=== PATIENT | male | born 1965 | race Caucasian/White ===

== ENCOUNTER 2016-10-14 07:31 | Emergency (ER) | payer BC ==
--- NOTE | 2016-10-14 08:05 | UC ---
Respiratory Complaint HPI - HPI Summary HPI Summary: 51 yo male with one week hx of progressive worsening URI symptoms Now with fever/chills, marked facial pressure and pain/post nasal drip and purulent nasal d/c sinus surgery in past - History of Current Complaint Chief Complaint: UCGeneralIllness Stated Complaint: SINUS COMPLAINT Time Seen by Provider: 10/14/16 07:53 Hx Obtained From: Patient Onset/Duration: Gradual Onset Timing: Constant Severity Initially: Mild Severity Currently: Moderate Pain Intensity: 4 Pain Scale Used: 0-10 Numeric Character: Cough: Nonproductive Associated Signs And Symptoms: Positive: Fever, Chills, Nasal Congestion, Hoarseness, Sinus Discomfort Related History: Similar Episode/Dx as: - acute sinusitis - Allergies/Home Medications Allergies/Adverse Reactions: Allergies Allergy/AdvReac Type Severity Reaction Status Date / Time Erythromycin Allergy Intermediate Eyes Verified 08/14/16 07:30 Itchy/Swollen/Red/Watery Lactose Intolerance (GI) Allergy Intermediate GI Upset Verified 08/14/16 07:30 Sulfa Antibiotics Allergy Intermediate Hives Verified 08/14/16 07:30 Tramadol Allergy Intermediate GI Upset Verified 08/14/16 07:30 Home Medications: Home Medications oxyCODONE/Acetamin 5/325 MG* [Percocet 5/325 TAB*] 1 tab PO Q6H PRN 10/14/16 [ History Confirmed 10/14/16] PMH/Surg Hx/FS Hx/Imm Hx Endocrine History Of: Denies: Diabetes, Thyroid Disease Cardiovascular History Of: Reports: Cardiac Disorders - a-fib Denies: Hypertension, Pacemaker/ICD Respiratory History Of: Reports: Bronchitis - HAD 1- 1.5 YEARS AGO NONE NOW Denies: COPD, Asthma GI/ History Of: Denies: Ulcer, Renal Disease Neurological History Of: Reports: Migraine - X 1 Psychological History Of: Reports: Anxiety - MILD - ON MEDS - Surgical History Surgical History: Yes Surgery Procedure, Year, and Place: LEFT SHOULDER SURGERY 12/09/15 Right shoulder surgery x [id number]. sinus surgery x 2,. tonsillectomy. LASER EYE - SURG. left shoulder surgery-08/2016 - Family History Known Family History: Positive: Hypertension - Social History Alcohol Use: None Alcohol Amount: Per pt he has had 2 beers this year Substance Use Type: None Smoking Status (MU): Heavy Every Day Tobacco Smoker Type: Cigarettes Amount Used/How Often: 1/2 - 1 PPD X 32 YEARS Length of Time of Smoking/Using Tobacco: 30 years Have You Smoked in the Last Year: Yes Household Exposure Type: Cigarettes - Immunization History Most Recent Influenza Vaccination: Fall 2012 Most Recent Tetanus Shot: Within past 10 years Most Recent Pneumonia Vaccination: Never Review of Systems Constitutional: Fever, Chills Skin: Negative Eyes: Negative ENT: Ear Ache, Nasal Discharge Respiratory: Cough Cardiovascular: Negative Gastrointestinal: Negative Genitourinary: Negative Motor: Negative Neurovascular: Negative Musculoskeletal: Negative Neurological: Negative Psychological: Negative All Other Systems Reviewed And Are Negative: Yes Physical Exam Triage Information Reviewed: Yes Appearance: Well-Appearing, No Pain Distress, Well-Nourished Vital Signs: Initial Vital Signs Temp 98.1 F 10/14/16 07:40 Pulse 78 10/14/16 07:40 Resp 16 10/14/16 07:40 Pulse Ox 99 10/14/16 07:40 Eye Exam: Normal Eyes: Positive: Conjunctiva Clear ENT: Positive: Nasal congestion, Nasal drainage, Other: - bilat max sinus tenderness. Negative: Hearing grossly normal - decreased hearing right, TMs normal - right unable to vis due to cerumen, left retracted Neck: Positive: Supple, Nontender, No Lymphadenopathy Respiratory: Positive: Lungs clear, Normal breath sounds, No respiratory distress, No accessory muscle use Cardiovascular: Positive: RRR, No Murmur Abdomen Description: Positive: Soft Musculoskeletal: Positive: Strength Intact, ROM Intact, No Edema Neurological Exam: Normal Neurological: Positive: Alert Skin Exam: Normal UC Diagnostic Evaluation - Laboratory O2 Sat by Pulse Oximetry: 99 - normal/not hypoxic Respiratory Course/Dx - Course Course Of Treatment: after flush TM normal - Differential Dx/Diagnosis Provider Diagnoses: acute sinusitis. right ear cerumen impaction Discharge - Discharge Plan Condition: Stable Disposition: HOME Prescriptions: Amoxicillin/Clavulanate TAB* [Augmentin TAB 875*] 875 mg PO BID #20 tab Patient Education Materials: Sinusitis (ED) Referrals: Chandler Oglesby MD [Primary Care Provider] - 5 Days (if not improved) Additional Instructions: saline nasal spray each nostril twice daily
== END 2016-10-14 08:20 | disposition home or self-care (01) ==
LOC: UCCORT 07:31
DX: J01.90 Acute sinusitis, unspecified (principal); H61.21 Impacted cerumen, right ear; I48.91 Unspecified atrial fibrillation; F41.9 Anxiety disorder, unspecified; F17.210 Nicotine dependence, cigarettes, uncomplicated; Z88.3 Allergy status to other anti-infective agents
CPT/HCPCS: 99213; G0463

== ENCOUNTER 2017-11-19 18:57 | Emergency (ER) | payer BC ==
--- OUTSIDE RECORDS SUMMARY | 2017-11-19 19:16 | XMS REPORT ---
:1965 External Reference #:[id number] Author Organization [email or web address] Address [address] [place] [address] Phone [phone] Care Team Providers Name Role Phone Chandler Oglesby M.D. Primary Care Physician Unavailable Payers Type Date Identification Numbers Payment Provider Subscriber Commercial Policy Number: [id number] [place] [employer] Mario Aparicio PayID: [id number] [address] [place] [address] Problems Date Description Provider Status Onset: Chronic back pain Active Onset: Anxiety Active Onset: Atrial fibrillation Active Onset: 05/03/2015 Primary open angle glaucoma Mihir Foley M.D. Active Onset: 05/03/2015 Vitreous degeneration Mihir Foley M.D. Active Onset: 05/03/2015 Mild / Early Stage Glaucoma Mihir Foley M.D. Active Onset: 05/18/2016 Chronic allergic conjunctivitis Mihir Foley M.D. Active Onset: 12/18/2016 Bilateral primary open angle glaucoma Mihir Foley M.D. Active Onset: 12/18/2016 Presbyopia Mihir Foley M.D. Active Onset: 09/13/2017 Conjunctivitis Mihir Foley M.D. Active Onset: 10/07/2017 Chalazion Jericho Dalal M.D. Active Onset: 10/07/2017 Diplopia Jericho Dalal M.D. Active Onset: 10/21/2017 Squamous blepharitis Mihir Foley M.D. Active Family History Date Family Member(s) Problem(s) Comments Father No Current Problems Mother Glaucoma First Sister Glaucoma Social History Type Date Description Comments Marital Status Legal Status: Occupation [employer] Work Status Retired ETOH Use Denies alcohol use Smoking Heavy tobacco smoker (more than 10 cigarettes/day) Recreational Drug Use Denies Drug Use Daily Caffeine Consumes on average 2 cups of regular coffee per day Allergies, Adverse Reactions, Alerts Date Description Reaction Status Severity Comments 12/31/2014 Sulfa Antibiotics active 12/31/2014 Erythromycin active 05/18/2016 Tramadol active Medications Medication Date Status Form Strength Qnty SIG Indications Ordering Provider Blephamide S.O.P. 10/21/ Active Ointment 10-0.2% 3.500g apply to H40.1131 Mihir Boyce 2018 m eyelid joce Foley M.D. at night for 2 weeks, then disconti nue. Vitamin C ER / Active Capsules 500mg Unknown 0000 ER Propafenone HCL / Active Tablets 225mg twice [place] 0000 daily , Kush Lincoln Clonazepam / Active Tablets 0.5mg Skez[place], 0000 Chandler Lincoln Pepcid / Active Tablets 20mg twice Unknown 0000 daily Aspir-81 / Active Tablets DR 81mg 1 daily Unknown 0000 Cyclobenzaprine / Active Tablets 5mg Unknown HCL 0000 Warm Compresses / Active 3 times Mihir Boyce 0000 daily Salazar Foley Artificial Tears / Active Solution 0.2-0.2-1% as Mihir Boyce 0000 needed Salazar Foley Verapamil HCL ER / Active Tablets ER 180mg Unknown 0000 Blephamide S.O.P. 09/20/ Hx Ointment 10-0.2% 3.500g apply to Mihir Boyce 2016 - m eyelid Og, 10/06/ joce Lincoln 2016 at night for 2 weeks, then disconti nue. Ciloxan 09/13/ Hx Solution 0.3% 5ml use 1 H10.89 Mihir Boyce 2017 - drop Og, 09/20/ vidhi M.Vipin 2017 times daily in both eyes, for 1 week then stop. Alphagan P 12/31/ Hx Solution 0.1% 10ml 1 drop Mihir Boyce 2015 - in both [place], 05/02/ ezra Lincoln 2014 twice a day Hydrocodone-Aceta / Hx Tablets 5-325mg Unknown minophen 0000 - 2015 Cyclobenzaprine / Hx Tablets 10mg Unknown HCL 0000 - 2015 Fish Oil / Hx Capsules 1000mg 1 by Unknown 0000 - mouth 05/17/ 2015 day Aspirin / Hx Tablets 325mg Unknown 0000 - 2015 Omeprazole / Hx Capsules 20mg Flavia Oglesby - DR Arteaga 06/28/ Salazar 2016 Results Description No Information Procedures Date CPT Code Description Status 10/07/2017 86113 Scanning Computerized Opthalmic Diagnostic Posterior Completed Seg Retina 09/21/2017 47626 Est Patient Intermediate Exam Completed 06/29/2017 24528 Visual Field Exam Extended Completed 06/29/2017 44232 Est Patient Intermediate Exam Completed 12/18/2016 78591 Scanning Computerized Ophthalmic Diagnostic Imag Completed Posterior Seg On 12/18/2016 30415 Est Patient Comprehensive Exam Completed 05/18/2016 31094 Visual Field Exam Extended Completed 05/18/2016 54756 Gonioscopy Completed 05/18/2016 84119 Est Patient Intermediate Exam Completed 11/15/2015 20505 Scanning Computerized Ophthalmic Diagnostic Imag Completed Posterior Seg On 11/15/2015 09050 Est Patient Comprehensive Exam Completed 05/03/2015 09970 Visual Field Exam Extended Completed 05/03/2015 44394 Est Patient Intermediate Exam Completed 11/19/2014 23476 Trabeculoplasty By Laser Surgery Completed 11/12/2014 18132 Trabeculoplasty By Laser Surgery Completed 10/16/2014 23431 Est Patient Comprehensive Exam Completed 10/16/2014 86549 Gonioscopy Completed 10/16/2014 02208 Fundus Photography With Interpretation And Report Completed 04/16/2014 08613 Visual Field Exam Extended Completed 04/16/2014 99136 Est Patient Intermediate Exam Completed 10/16/2013 36932 Scanning Computerized Ophthalmic Diagnostic Imag Completed Posterior Seg On 10/16/2013 50680 Est Patient Comprehensive Exam Completed 04/12/2013 85677 Visual Field Exam Extended Completed 04/12/2013 45656 Est Patient Intermediate Exam Completed 09/16/2012 29656 Est Patient Intermediate Exam Completed 03/17/2012 74584 Scanning Computerized Ophthalmic Diagnostic Imag Completed Posterior Seg On 03/17/2012 36814 Visual Field Exam Extended Completed 03/17/2012 18823 Est Patient Intermediate Exam Completed 10/13/2011 56849 Est Patient Intermediate Exam Completed 07/20/2011 83773 Visual Field Exam Extended Completed 2011 59650 Fundus Photography With Interpretation And Report Completed 2011 32658 New Patient Comprehensive Exam Completed 2011 09721 Pachymetry Completed Encounters Type Date Location Provider CPT E/M Dx Office Visit 10/07/2017 11:30a Mihir Foley MD, Jericho Dalal, [address] H00.11 pc M.D. H53.2 Office Visit 09/13/2017 11:45a Mihir Foley MD, Mihir Foley, 89288 H10.89 pc M.DDaria H40.1131 Office Visit 12/31/2014 8:15a Mihir Foley MD, Mihir Foley, [address] 365.11 pc M.D. 365.72 Plan of Care Future Appointment(s):12/28/2017 8:15 am - Mihir Foley M.D. at Mihir Foley MD, 10/21/2017 - Mihir Foley M.D.H01.021 Squamous blepharitis right upper eyelidComments:Smoking can increase the risk of developing or worsening any eye related disease, as well as affect your overall health. If you are a smoker, we strongly recommend that you quit.If you are not a smoker, we strongly recommend that you do not start.H01.022 Squamous blepharitis right lower dcfmixQ68.024 Squamous blepharitis left upper vscbrtG02.025 Squamous blepharitis left lower aauogyF92.11 Chalazion right upper mebupcQ12.2 RjpqnpwvA51.1131 Primary open-angle glaucoma, bilateral, mild stageNew Medication:Blephamide S.O.P. 10-0.2 %Comments:Smoking can increase the risk of developing or worsening any eye related disease, as well as affect your overall health. If you are a smoker, we strongly recommend that you quit.If you are not a smoker, we strongly recommend that you do not start. Your glaucoma is stable at this time.Your eye pressure is within an acceptable range, and your testing does not show any further deterioration at this time. Please continue your treatment.Follow up:12/26 IOP Check Corneal Topography DIAG MR At your next visit, we are not planning to dilate your eyes. However, if you have any changes in your vision or new symptoms, there are certain situations that require us to dilate your eyes. If Dr. Foley requests any additional testing, that may require extra time. If you have any questions before your next appointment, please call our office at .
[2017-11-19 20:10] VITALS: BP 127/80
[2017-11-19] MEDS ORDERED: Benzonatate CAP* 100 MG PO ONE (20:46)
--- NOTE | 2017-11-19 21:05 | UC ---
Respiratory Complaint HPI - HPI Summary HPI Summary: 52 yo male with onset of fatigue/xiao/cough/sever myalgias Has been prescribed tamiflu because his daughter has flu no cp hx dysrthymia sceduled for ablation next month - History of Current Complaint Chief Complaint: UCGeneralIllness Stated Complaint: FLU SYMPTOMS Time Seen by Provider: 11/19/17 20:38 Hx Obtained From: Patient Onset/Duration: Sudden Onset, Lasting Hours Timing: Constant Severity Initially: Mild Severity Currently: Moderate Pain Intensity: 6 Pain Scale Used: 0-10 Numeric Character: Cough: Nonproductive Associated Signs And Symptoms: Positive: Chills, Nasal Congestion, Hoarseness, Sinus Discomfort - Allergies/Home Medications Allergies/Adverse Reactions: Allergies Allergy/AdvReac Type Severity Reaction Status Date / Time erythromycin base Allergy Eyes Verified 11/19/17 19:49 Itchy/Swollen/Red/Watery lactose Allergy GI Upset Verified 11/19/17 19:49 prednisone Allergy Tachycardia Verified 11/19/17 19:49 Sulfa (Sulfonamide Allergy Hives Verified 11/19/17 19:49 Antibiotics) tramadol Allergy GI Upset Verified 11/19/17 19:49 Home Medications: Home Medications Apixaban* [Eliquis*] 5 mg PO DAILY 11/19/17 [History Confirmed 11/19/17] Famotidine TAB* [Pepcid 20 MG TAB*] 20 mg PO BID 11/19/17 [History Confirmed 06/28] Oseltamivir CAP* [Tamiflu CAP*] 75 mg PO DAILY 11/19/17 [History Confirmed 11/19] Verapamil HCl [Verapamil HCl ER] 180 mg PO BEDTIME 11/19/17 [History Confirmed 11/19/17] PMH/Surg Hx/FS Hx/Imm Hx Previously Healthy: Yes Cardiovascular History: Other Other Cardiovascular History: dysrthymia - Surgical History Surgical History: Yes Surgery Procedure, Year, and Place: LEFT SHOULDER SURGERY 12/09/15 AND 08/2016. Right shoulder surgery x [id number]. sinus surgery x 2- Rhinoseptoplasty 1984, scar tissue removal-sinus/septum 1988,. tonsillectomy,LASER EYE - SURG. left shoulder surgery-08/2016 - Family History Known Family History: Positive: Hypertension - Social History Alcohol Use: Rare Alcohol Amount: Per pt he has had 2 beers this year Substance Use Type: None Smoking Status (MU): Heavy Every Day Tobacco Smoker Type: Cigarettes Amount Used/How Often: 1/2 - 1 PPD X 32 YEARS Length of Time of Smoking/Using Tobacco: 30 years Have You Smoked in the Last Year: Yes Household Exposure Type: Cigarettes - Immunization History Most Recent Influenza Vaccination: Fall 2012 Most Recent Tetanus Shot: Within past 10 years Most Recent Pneumonia Vaccination: Never Review of Systems Constitutional: Chills, Fatigue Skin: Negative Eyes: Negative ENT: Nasal Discharge, Sinus Pain/Tenderness Respiratory: Cough Cardiovascular: Negative Gastrointestinal: Negative Genitourinary: Negative Motor: Negative Neurovascular: Negative Musculoskeletal: Myalgia Neurological: Headache Psychological: Negative Is Patient Immunocompromised?: No All Other Systems Reviewed And Are Negative: Yes Physical Exam Triage Information Reviewed: Yes Appearance: Well-Appearing, No Pain Distress, Well-Nourished Vital Signs: Initial Vital Signs Temp 98.2 F 11/19/17 19:53 Pulse 81 11/19/17 19:53 Resp 16 11/19/17 19:53 BP 127/80 11/19/17 19:53 Pulse Ox 98 11/19/17 19:53 Vital Signs Reviewed: Yes Eyes: Positive: Conjunctiva Clear ENT: Positive: Hearing grossly normal, Nasal congestion, Nasal drainage, Uvula midline. Negative: Tonsillar swelling, Tonsillar exudate, Muffled voice, Hoarse voice, Dental tenderness, Sinus tenderness Neck: Positive: Supple, Nontender, No Lymphadenopathy Respiratory: Positive: Lungs clear, Normal breath sounds, No respiratory distress Cardiovascular: Positive: RRR, No Murmur Musculoskeletal: Positive: ROM Intact, No Edema Neurological: Positive: Alert Psychological Exam: Normal Skin Exam: Normal UC Diagnostic Evaluation - Laboratory O2 Sat by Pulse Oximetry: 98 - normal/not hypoxic Respiratory Course/Dx - Differential Dx/Diagnosis Provider Diagnoses: influenza or influenza like illness Discharge - Discharge Plan Condition: Stable Disposition: HOME Prescriptions: Benzonatate CAP* [Tessalon CAP*] 100 - 200 mg PO TID PRN #28 cap PRN Reason: Cough Patient Education Materials: Influenza (ED) Forms: *Work Release Referrals: Chandler Oglesby MD [Primary Care Provider] - 5 Days (if not better) Additional Instructions: rest fluids take your Tamiflu twice daily as directed for 5 days
== END 2017-11-19 20:55 | disposition home or self-care (01) ==
LOC: UCCORT 18:57
DX: J11.1 Influenza due to unidentified influenza virus with other respiratory manifestations (principal); Z20.828 Contact with and (suspected) exposure to other viral communicable diseases; F34.1 Dysthymic disorder; F17.210 Nicotine dependence, cigarettes, uncomplicated
CPT/HCPCS: 93005; 99212; A9270-GY; G0463

== ENCOUNTER 2018-02-08 07:27 | Emergency (ER) | payer BC ==
[2018-02-08 09:04] VITALS: BP 131/87
--- NOTE | 2018-02-08 10:08 | UC ---
UC General HPI - HPI Summary HPI Summary: pt is c/o a 3-4 day hx WHITE, fatigue and nausea. He has had loose stool and today has some diarrhea with no blood or mucous.He admits to bodyaches. He denies travel hx, antibiotic use and fever. He has no cp or sob but had recent ablation for afib. Denies abdominal pain but gets some cramping. he had a colonoscopy about 1 year ago and had polyps removed but had no diverticular disease. - History of Current Complaint Chief Complaint: UCGeneralIllness Stated Complaint: CONGESTION, STOMACH ACHE Time Seen by Provider: 02/08/18 10:01 Hx Obtained From: Patient Onset/Duration: Gradual Onset Timing: Constant Pain Intensity: 6 Aggravating: po intake worsens n/d Alleviating: nothing Associated Signs & Symptoms: Positive: Diarrhea, Headache, Nausea. Negative: Abdominal Pain, Cough, Chest Pain, Dizziness, Dysuria, Fever, Vomiting - Allergy/Home Medications Allergies/Adverse Reactions: Allergies Allergy/AdvReac Type Severity Reaction Status Date / Time erythromycin base Allergy Eyes Verified 02/08/18 08:59 Itchy/Swollen/Red/Watery lactose Allergy GI Upset Verified 02/08/18 08:59 prednisone Allergy Tachycardia Verified 02/08/18 08:59 Sulfa (Sulfonamide Allergy Hives Verified 02/08/18 08:59 Antibiotics) tramadol Allergy GI Upset Verified 02/08/18 08:59 Home Medications: Home Medications Acetaminophen TAB* [Tylenol TAB*] 325 mg PO Q4H PRN 02/08/18 [History Confirmed 02/08/18] PMH/Surg Hx/FS Hx/Imm Hx - Additional Past Medical History Additional PMH: sinusitis, chronic back pain Cardiovascular History: Atrial Fibrillation - ablation 6 weeks ago - Surgical History Surgical History: Yes Surgery Procedure, Year, and Place: LEFT SHOULDER SURGERY 12/09/15 AND 08/2016. Right shoulder surgery x [id number]. sinus surgery x 2- Rhinoseptoplasty 1984, scar tissue removal-sinus/septum 1988,. tonsillectomy,LASER EYE - SURG. left shoulder surgery-08/2016. cardiac ablation 12/2017 - Family History Known Family History: Positive: Hypertension - Social History Occupation: Employed Full-time Alcohol Use: Rare Alcohol Amount: Per pt he has had 2 beers this year Substance Use Type: None Smoking Status (MU): Heavy Every Day Tobacco Smoker Type: Cigarettes Amount Used/How Often: 1/2 - 1 PPD X 32 YEARS Length of Time of Smoking/Using Tobacco: 30 years Have You Smoked in the Last Year: Yes Household Exposure Type: Cigarettes - Immunization History Most Recent Influenza Vaccination: Fall 2012 Most Recent Tetanus Shot: Within past 10 years Most Recent Pneumonia Vaccination: Never Vaccination Up to Date: Yes Review of Systems Constitutional: Fatigue Skin: Negative Eyes: Negative ENT: Sinus Congestion Respiratory: Negative Cardiovascular: Negative Gastrointestinal: Diarrhea, Nausea Genitourinary: Negative Motor: Negative Neurovascular: Negative Musculoskeletal: Negative Neurological: Headache Psychological: Negative Is Patient Immunocompromised?: No All Other Systems Reviewed And Are Negative: Yes Physical Exam Triage Information Reviewed: Yes Appearance: Well-Appearing Vital Signs: Initial Vital Signs Temp 97.5 F 02/08/18 08:54 Pulse 77 02/08/18 08:54 Resp 17 02/08/18 08:54 BP 131/87 02/08/18 08:54 Pulse Ox 99 02/08/18 08:54 Vital Signs Reviewed: Yes Eyes: Positive: Conjunctiva Clear ENT: Positive: Pharynx normal, TMs normal. Negative: Nasal drainage Neck: Positive: Supple, Nontender, No Lymphadenopathy Respiratory: Positive: Lungs clear, Normal breath sounds, No respiratory distress Cardiovascular: Positive: RRR, No Murmur, Pulses Normal Abdomen Description: Positive: Nontender, No Organomegaly, Soft. Negative: Distended, Guarding Bowel Sounds: Positive: Hyperactive Musculoskeletal: Positive: ROM Intact Neurological: Positive: Alert Psychological: Positive: Age Appropriate Behavior Skin Exam: Normal Diagnostics - Laboratory Diagnostic Studies Completed/Ordered: rapid flu=neg Re-Evaluation - Re-Evaluation Second Eval Change: Improved - declined tylenol because he took his own, nausea has improved. also notes WHITE has been resolving on its own. Course/Dx - Course Course Of Treatment: pt c/o WHITE but is refusing the tylenol I ordered. non toxic , no acute abdomen, rapid flu=neg. no risk for c-diff, bacterial and parasitic diarrhea. tx supportive with close f/u. pt decline work note. - Differential Dx - Multi-Symptom Provider Diagnoses: Nausea, Diarrhea Discharge - Sign-Out/Discharge Documenting (check all that apply): Discharge/Admit/Transfer - Discharge Plan Condition: Stable Disposition: HOME Patient Education Materials: Acute Nausea and Vomiting (ED), Acute Diarrhea (ED ) Referrals: Chandler Oglesby MD [Primary Care Provider] - 3 Days - Billing Disposition and Condition Condition: STABLE Disposition: HOME
[2018-02-08] MEDS ORDERED: Ondansetron ODT TAB* 4 MG PO ONE (10:10)
[2018-02-08] MEDS ORDERED: Acetaminophen ADULT LIQ* 650 MG/20.3 ML UDC PO ONE (10:10)
== END 2018-02-08 10:56 | disposition home or self-care (01) ==
LOC: UCCORT 07:27
DX: R11.0 Nausea (principal); R19.7 Diarrhea, unspecified; F17.210 Nicotine dependence, cigarettes, uncomplicated; Z88.3 Allergy status to other anti-infective agents; Z88.2 Allergy status to sulfonamides; Z88.5 Allergy status to narcotic agent; Z88.8 Allergy status to other drugs, medicaments and biological substances
CPT/HCPCS: 87502; 99212; A9270-GY; G0463

== ENCOUNTER 2024-04-07 10:11 | Observation (INO) ==
[2024-04-07 10:42] LABS: ABS Basophils 0.1 10^3/uL (0.0-0.1); ABS Eosinophils 0.2 10^3/uL (0.0-0.5); ABS Lymphocytes 1.9 10^3/uL (1.0-4.8); ABS Monocytes 0.6 10^3/uL (0.0-1.1); ABS Neutrophils 3.9 10^3/uL (1.5-7.6); Eosinophil % 2.3 %; Hematocrit 47.7 % (38-53); Hemoglobin 16.2 g/dL (13.2-16.3); Lymphocyte % 29.3 %; Mean Corpuscular Hemoglobin 32.3 pg (27-33); Mean Corpuscular Hgb Conc 33.9 g/dL (31-36); Mean Corpuscular Volume 95.4 fL (80-97); Mean Platelet Volume 7.7 fL (7.5-11.2); Nucleated Red Blood Cells % 0.1 %/100WBC (0.0-0.8); Platelet Count 235 10^3/uL (150-450); Red Cell Distribution Width 13.2 % (12-17); White Blood Count 6.6 10^3/uL (3.6-10.2)
[2024-04-07 10:56] LABS: INR 0.95 (0.83-1.13)
[2024-04-07 11:43] LABS: Albumin 4.6 g/dL (3.2-5.2); Albumin/Globulin Ratio 1.9 (1-3); Calcium 9.8 mg/dL (8.6-10.3); Creatinine, Serum 0.91 mg/dL (0.67-1.17); Globulin 2.4 g/dL (2-4); Potassium 4.4 mmol/L (3.5-5.0); Total Bilirubin 0.4 mg/dL (0.2-1.0); Urine Appearance Clear; Urine Bilirubin Negative (Negative); Urine Blood Negative (Negative); Urine Color Colorless; Urine Glucose Negative (Negative); Urine Ketones Negative (Negative); Urine Nitrite Negative (Negative); Urine Protein Negative (Negative); Urine Specific Gravity 1.004 (1.002-1.030); Urine Urobilinogen Negative (Negative); eGFR CKD-EPI 98.3 (>60)
[2024-04-07 12:24] LABS: High Sensitivity Troponin 1 Hr < 3 pg/mL (<20)
[2024-04-07] MEDS: Iohexol 350 (CONTRAST) 500 ML MDV IV ONE (14:24)
[2024-04-07] MEDS: Lidocaine PATCH 5% PATCH TRANSDERM SCH (23:20)
[2024-04-08] MEDS: Morphine 2 MG/ML SYRINGE IV PRN (01:15)
[2024-04-08] MEDS: Nicotine PATCH 14 MG/24 HR PATCH TRANSDERM SCH (02:38)
[2024-04-08 14:27] VITALS: BP 116/71
[2024-04-08] MEDS ORDERED: Aspirin EC 81 mg TAB.EC (enteric coated) PO SCH (21:00)
[2024-04-10 23:47] LABS: Anaplasma phagocytophilum Negative (Negative); B. miyamotoi PCR, B Negative (Negative); Babesia divergens/MO-1 Negative (Negative); Babesia ducani Negative (Negative); Ehrlichia chaffeensis Negative (Negative); Ehrlichia ewingii/canis Negative (Negative); Ehrlichia muris eauclairensis Negative (Negative)
== END 2024-04-08 15:20 | disposition home or self-care (01) ==
LOC: ED 10:11 → INTOOBSV 21:30 → SUATTDRO 21:30 → EDHOLD 21:30 → MEDTELE 04-08 01:07
PROVIDERS: ADMIT Hospitalist; ATTEND Student in an Organized Health Care Education/Training Program